=== PATIENT | female | born 1955 | race Caucasian/White ===

== ENCOUNTER 2017-01-20 17:36 | Emergency (ER) | payer BC ==
--- NOTE | 2017-01-20 17:40 | PDOC ---
History of Present Illness - General History Source: Patient Exam Limitations: No Limitations - History of Present Illness Initial Comments: 01/20/17 17:54 The patient is a 61 year old female, with a significant past medical history of hypertension, who presents to the emergency department complaining of a sore throat for approximately 5 days. The patient reports she has noted a post nasal drip, a sore throat, and diffuse body aches. Patient denies any associated fever , chills, cough, headache, or dizziness. Patient reports she typically develops these symptoms and a canker sore around her lip during this time of year so initially she did not think much of it, because her symptoms usually resolve on their own. 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 She denies any chest pain, shortness of breath, diaphoresis, or palpitations. She denies any recent travel. Allergies: NKDA Past Surgical History: None reported. Social History: Social ETOH use. Non smoker. No recreational drug use. PCP: Dr. Giraldo <Dionisio Lawson - Last Filed: 01/20/17 17:54> <Chi Walsh - Last Filed: 01/20/17 18:09> - General Chief Complaint: Sore Throat Stated Complaint: SORE THROAT Time Seen by Provider: 01/20/17 17:40 Past History <Dionisio Lawson - Last Filed: 01/20/17 17:54> - Past Medical History HTN: Yes - Suicide/Smoking/Psychosocial Hx Smoking History: Never smoked Have you smoked in the past 12 months: No Hx Alcohol Use: Yes (SOCIAL) Drug/Substance Use Hx: No Substance Use Type: None <Chi Walsh - Last Filed: 01/20/17 18:09> - Past Medical History Allergies/Adverse Reactions: Allergies Allergy/AdvReac Type Severity Reaction Status Date / Time No Known Allergies Allergy Verified 10/28/15 13:21 Home Medications: Ambulatory Orders Amlodipine/Atorvastatin [Amlodipine-Atorvast 5-10 mg] 1 each PO HS 10/28/15 Aspirin [Aspirin EC] 81 mg PO HS 10/28/15 Cholecalciferol (Vitamin D3) [Vitamin D3 -] 1,000 unit PO DAILY 10/28/15 Ascorbic Acid [Vitamin C -] 500 mg PO DAILY 01/20/17 Review of Systems - Review of Systems Able to Perform ROS?: Yes Comments:: 01/20/17 17:54 GENERAL/CONSTITUTIONAL: Yes body aches. No fever or chills. No weakness. HEAD, EYES, EARS, NOSE AND THROAT: Yes: sore throat, post nasal drip. No change in vision. No ear pain or discharge. CARDIOVASCULAR: No chest pain or shortness of breath. RESPIRATORY: No cough, wheezing, or hemoptysis. GASTROINTESTINAL: No nausea, vomiting, diarrhea or constipation. GENITOURINARY: No dysuria, frequency, or change in urination. MUSCULOSKELETAL: No joint or muscle swelling or pain. No neck or back pain. SKIN: No rash NEUROLOGIC: No headache, vertigo, loss of consciousness, or change in strength/ sensation. ENDOCRINE: No increased thirst. No abnormal weight change. HEMATOLOGIC/LYMPHATIC: No anemia, easy bleeding, or history of blood clots. ALLERGIC/IMMUNOLOGIC: No hives or skin allergy. <Dionisio Lawson - Last Filed: 01/20/17 17:54> *Physical Exam - Vital Signs Last Vital Signs Temp Pulse Resp BP Pulse Ox 98.1 F 80 15 136/84 100 01/20/17 17:37 01/20/17 17:37 01/20/17 17:37 01/20/17 17:37 01/20/17 17:37 - Physical Exam Comments: 01/20/17 17:54 GENERAL: Awake, alert, and fully oriented, in no acute distress HEAD: No signs of trauma EYES: PERRLA, EOMI, sclera anicteric, conjunctiva clear ENT: Mild erythema to the posterior oropharynx but no exudates.Auricles normal inspection, hearing grossly normal, nares patent. Moist mucosa NECK: Cervical lymphadenopathy. Normal ROM, supple, JVD, or masses LUNGS: Breath sounds equal, clear to auscultation bilaterally. No wheezes, and no crackles HEART: Regular rate and rhythm, normal S1 and S2, no murmurs, rubs or gallops ABDOMEN: Soft, nontender, normoactive bowel sounds. No guarding, no rebound. No masses EXTREMITIES: Normal range of motion, no edema. No clubbing or cyanosis. No cords, erythema, or tenderness NEUROLOGICAL: Cranial nerves II through XII grossly intact. Normal speech, normal gait SKIN: Warm, Dry, normal turgor, no rashes or lesions noted. <Dionisio Lawson - Last Filed: 01/20/17 17:54> ED Treatment Course - ADDITIONAL ORDERS Additional order review: 01/20/17 18:08 Pt with negative strep test Will treat this as a viral pharyngitis Fluids, rest, Tylenol If worsen return to ER <Chi Walsh - Last Filed: 01/20/17 18:09> *DC/Admit/Observation/Transfer - Attestations Scribe Attestion: 01/20/17 17:54 Documentation prepared by Dionisio Lawson, acting as medical concierge for Chi Walsh MD. <Dionisio Lawson - Last Filed: 01/20/17 17:54> - Discharge Dispostion Admit: No <Chi Walsh - Last Filed: 01/20/17 18:09> Diagnosis at time of Disposition: Viral pharyngitis - Discharge Dispostion Disposition: HOME Condition at time of disposition: Good - Referrals Referrals: Hakeem Giraldo MD [Primary Care Provider] - - Patient Instructions Printed Discharge Instructions: DI for Viral Pharyngitis Additional Instructions: Fluids, rest, Tylenol If worsen return to ER
[2017-01-20 17:50] VITALS: BP 136/84; PULSE 80; TEMP 98.1; BMI 20.6
== END 2017-01-20 18:13 | disposition home or self-care (01) ==
LOC: FER 17:36
DX: J02.8 Acute pharyngitis due to other specified organisms (principal); B97.89 Other viral agents as the cause of diseases classified elsewhere; I10 Essential (primary) hypertension
CPT/HCPCS: 87070; 87430; 99281-25